=== PATIENT | female | born 1970 | race Caucasian/White ===

== ENCOUNTER 2025-01-14 08:32 | Outpatient (CLI) | payer BC ==
[2025-01-14] MEDS ORDERED: Iopamidol 300 61% 100 ML VIAL FS ONE (12:12)
== END 2025-01-14 08:33 | disposition home or self-care (01) ==
LOC: CSHCT 08:32
PROVIDERS: ATTEND Family Medicine
DX: R59.0 Localized enlarged lymph nodes (principal); S00.85XA Superficial foreign body of other part of head, initial encounter
CPT/HCPCS: 70491; Q9967